=== PATIENT | male | born 1960 | race Two or more races ===

== ENCOUNTER 2025-04-10 13:55 | Inpatient (IN) | payer MEDICARE, OTHER ==
[~2025-04-10] VITALS: Ht 190.5 cm; Wt 94.0 kg
[2025-04-10 14:44] LABS: PLATELET COUNT (AUTO) 148 K/uL (150-450); RED BLOOD CELL COUNT(AUTO) 4.43 MIL/uL (4.5-6.0); RED CELL DISTRIBUTION WIDTH 12.9 % (11.5-15.0); WHITE BLOOD COUNT (AUTO) 5.9 K/uL (4.3-11.0)
[2025-04-10 14:56] LABS: CALCIUM, SERUM 8.9 mg/dL (8.5-10.1); CREATININE 0.8 mg/dL (0.6-1.3); SODIUM SERUM 141.0 mmol/L (136-145); UREA NITROGEN, BLOOD 11.0 mg/dL (7-18)
[2025-04-10 15:12] LABS: INR 1.04 (0.91-1.10)
[2025-04-10 16:00] VITALS: BP 152/75; TEMP 98.1; O2SAT 97
[2025-04-10 16:45] VITALS: BP 152/75; TEMP 97.8; O2SAT 97
[2025-04-10] MEDS ORDERED: DOCU-141 PO (16:59)
[2025-04-10] MEDS ORDERED: SPIR100T5 PO (16:59)
[2025-04-10] MEDS ORDERED: TAMS-12 PO (16:59)
[2025-04-10] MEDS ORDERED: ZOLP5TAB8 PO (16:59)
[2025-04-10] MEDS ORDERED: LORA10TA64 PO (16:59)
[2025-04-10] MEDS ORDERED: FAMO20TA8 PO (16:59)
[2025-04-10] MEDS ORDERED: ONDA4TAB11 PO (16:59)
[2025-04-10] MEDS ORDERED: GABA-532 PO (16:59)
[2025-04-10] MEDS ORDERED: AZIT250T PO (17:09)
[2025-04-10] MEDS ORDERED: Z GUARD REMEDY 4 OZ OINT TP PRN (18:30)
[2025-04-10] MEDS ORDERED: ONDANSETRON HCL/PF 4 MG/2 ML VIAL IVP PRN (18:30)
[2025-04-10] MEDS: ENOXAPARIN SODIUM 40 MG/0.4 ML DISP.SYRIN SQ SCH (18:41)
[2025-04-10 20:00] VITALS: BP 148/78; TEMP 98.1; O2SAT 96
[2025-04-10 23:24] VITALS: O2SAT 99
[2025-04-10] MEDS: ALBUTEROL FS 2.5 MG/3 ML VIAL.NEB NEB SCH (23:24)
[2025-04-10] MEDS: IPRATROPIUM NEB FS 0.5 MG/2.5 ML AMPUL.NEB NEB SCH (23:24)
[2025-04-11] VITALS (9 sets, daily range): BP systolic 110–147; BP diastolic 69–93; TEMP 97.7–98.1; O2SAT 91–98
[2025-04-11] MEDS: METHOCARBAMOL (500MG) 500 MG TABLET PO SCH (00:20)
[2025-04-11 06:41] LABS: PLATELET COUNT (AUTO) 156 K/uL (150-450); RED BLOOD CELL COUNT(AUTO) 4.72 MIL/uL (4.5-6.0); RED CELL DISTRIBUTION WIDTH 13.0 % (11.5-15.0); WHITE BLOOD COUNT (AUTO) 4.8 K/uL (4.3-11.0)
[2025-04-11 07:14] LABS: CALCIUM, SERUM 9.3 mg/dL (8.5-10.1); CREATININE 0.7 mg/dL (0.6-1.3); PHOSPHORUS 2.9 mg/dL (2.5-4.9); SODIUM SERUM 140.0 mmol/L (136-145); UREA NITROGEN, BLOOD 9.0 mg/dL (7-18)
[2025-04-11] MEDS: DOCUSATE SODIUM 100 MG CAPSULE PO SCH (09:43)
[2025-04-11] MEDS: TAMSULOSIN 0.4 MG CAP.SR.24H PO SCH (09:43)
[2025-04-11] MEDS: GABAPENTIN 100 MG CAPSULE PO SCH (09:43)
[2025-04-11] MEDS: PANTOPRAZOLE 40 MG TABLET.DR PO SCH (09:43)
[2025-04-11] MEDS: HYDROCODONE/APAP 5/325MG TABLET PO PRN (09:55)
[2025-04-11] MEDS: DOCUSATE SODIUM 250 MG CAPSULE PO SCH (16:39)
[2025-04-12] VITALS (13 sets, daily range): BP systolic 138–157; BP diastolic 77–99; TEMP 97.9–98.8; O2SAT 93–98
[2025-04-12] MEDS: IPRATROPIUM NEB FS 0.5 MG/2.5 ML AMPUL.NEB NEB SCH (09:30)
[2025-04-12] MEDS: ALBUTEROL FS 2.5 MG/3 ML VIAL.NEB NEB SCH (09:30)
[2025-04-12] MEDS: MAGNESIUM HYDROXIDE 30 ML UDC PO PRN (18:09)
[2025-04-13] VITALS (10 sets, daily range): BP systolic 134; BP diastolic 82; TEMP 97.9; O2SAT 92–100
[2025-04-13 07:34] LABS: PLATELET COUNT (AUTO) 163 K/uL (150-450); RED BLOOD CELL COUNT(AUTO) 4.48 MIL/uL (4.5-6.0); RED CELL DISTRIBUTION WIDTH 13.3 % (11.5-15.0); WHITE BLOOD COUNT (AUTO) 7.0 K/uL (4.3-11.0)
[2025-04-13 08:00] LABS: CALCIUM, SERUM 8.7 mg/dL (8.5-10.1); CREATININE 0.7 mg/dL (0.6-1.3); PHOSPHORUS 2.6 mg/dL (2.5-4.9); SODIUM SERUM 141.0 mmol/L (136-145); UREA NITROGEN, BLOOD 18.0 mg/dL (7-18)
[2025-04-13] MEDS: ACETAMINOPHEN 325 MG TABLET PO PRN (10:43)
[2025-04-13] MEDS ORDERED: PRED20TA PO (11:55)
[2025-04-13] MEDS ORDERED: ALBU2.5V13 NEB (11:55)
[2025-04-13] MEDS ORDERED: IPRA0.2S9 IH (11:55)
== END 2025-04-13 16:00 | disposition hospice, inpatient (51) | DRG 192 ==
LOC: ER 14:54 → MED 16:36
PROVIDERS: ADMIT Nurse Practitioner Family; ATTEND Nurse Practitioner Family
DX: J44.1 Chronic obstructive pulmonary disease with (acute) exacerbation (principal); I10 Essential (primary) hypertension; R62.7 Adult failure to thrive; Z66 Do not resuscitate; Z79.899 Other long term (current) drug therapy; G89.29 Other chronic pain; Z98.1 Arthrodesis status; Z79.51 Long term (current) use of inhaled steroids
CPT/HCPCS: 36415; 71045-TC; 80048-TC; 82962-TC; 83735-TC; 84100-TC; 85025-TC; 85730-TC; 94760-TC; 94799-TC; G0378; J1650